=== PATIENT | female | born 1935 | race Hispanic/Latino ===

== ENCOUNTER 2017-05-19 17:12 | Inpatient (IN) | payer MEDICARE ==
[~2017-05-19 17:12] MED LIST: ISOVUE-370 76%-LOCM 1 ML ONE
[2017-05-19 18:09] LABS: #Lymphocytes 0.9 thou/uL (1.20-3.40); #Monocytes 0.9 thou/uL (0.11-0.59); #Neutrophils 14.5 thou/uL (1.40-6.50); %Basophils 0.1 % (0.0-1.0); %Eosinophils 0.1 % (0.0-10.0); %Lymphocytes 5.5 % (21.0-51.0); %Monocytes 5.6 % (0.0-10.0); %Neutrophils 88.7 % (42.0-75.0); Hemoglobin 13.8 g/dL (12.0-16.0); Mean Corpuscular HGB CONC 33.4 g/dL (32.0-36.0); Mean Corpuscular Hemoglobin 30.2 pg (27.0-31.0); Mean Corpuscular Volume 90.4 fl (81.0-99.0); Mean Platelet Volume 8.5 fL (7.4-10.4); Platelet Count 261 thou/uL (130-400); RBC Distribution Width 12.4 % (11.5-14.5); Red Blood Cell (RBC) Count 4.56 mill/uL (4.20-5.40); White Blood Cell (WBC) Count 16.3 thou/uL (4.8-10.8)
[2017-05-19 18:23] LABS: ALT (SGPT) 19 U/L (8-55); AST (SGOT) 125 U/L (5-34); Alkaline Phosphatase 73 U/L (40-150); Anion Gap 20 mmol/L (10-20); BUN (Urea Nitrogen) 47 mg/dL (9.8-20.1); Bilirubin, Total 0.5 mg/dL (0.2-1.2); Calc. Creatinine Clearance 0 mL/min (70-130); Carbon Dioxide 19 mmol/L (23-31); Chloride 103 mmol/L (98-107); Estimated GFR-MDRD 53; Globulin 3.1 g/dL (2.4-3.5); Glucose 122 mg/dL (83-110); Lipase 13 U/L (8-78); Potassium 3.8 mmol/L (3.5-5.1); Protein, Total 7.1 g/dL (6.0-8.3); Sodium 138 mmol/L (136-145)
[2017-05-19 18:32] LABS: Troponin I 0.535 ng/mL (< 0.028)
[2017-05-19 18:36] LABS: CK (CPK) 6916 U/L (29-168)
[2017-05-19 18:42] LABS: Bilirubin Negative (Negative); Blood, Urine Large (Negative); Clarity CLOUDY (Clear); Glucose, Urine (Dipstick) Negative (Negative); Leukocyte Negative (Negative); Nitrite Negative (Negative); Protein, Urine (Dipstick) 100 mg/dL (Neg-Trace); Specific Gravity, Urine 1.024 (1.002-1.036); Urobilinogen 0.2 mg/dL (0.2-1.0)
[2017-05-19 18:45] LABS: Pathc Cast-AUWi Flag 2.16 (0-2.49); Squamous Epithelial 0-3 HPF (0-3); WBC/HPF 0-3 HPF (0-3)
[2017-05-19 18:46] LABS: Yeast-AUWi Flag 45.3 (0-25.0)
[2017-05-19 19:03] LABS: Bacteria/HPF 1+ HPF (None Seen); Yeast-All Forms None Seen HPF (None Seen)
[2017-05-19 19:04] LABS: Hyaline Casts/LPF 0-3 HYALINE CAST LPF (0-3 Hyaline)
[2017-05-19] MEDS ORDERED: cefTRIAXone\\ROCEPHIN 2 GM in Sodium Chloride 0.9% 100 ML IVPB SCH (19:15)
--- NOTE | 2017-05-19 19:48 | CT ---
CT CERVICAL SPINE 05/19/17 PROVIDED CLINICAL HISTORY: Injury. FINDINGS: There is no evidence for fracture or traumatic subluxation. No prevertebral soft tissue swelling is e vident. The visualized lung apices appear clear. IMPRESSION: No evidence for fracture or traumatic subluxation. POS: [facility]
--- NOTE | 2017-05-19 20:38 | CT ---
CT BRAIN 05/19/17 PROVIDED CLINICAL HISTORY: Injury. FINDINGS: The ventricular system is normal in size and morphology. There is no evidence for intracranial hemorr jagdish or mass effect. Microvascular ischemic changes are noted. Extracranial soft tissues and osseous structures demonstrate no acute findings. IMPRESSION: No evidence for intracranial hemorrhage or mass effect. POS: [facility]
--- NOTE | 2017-05-19 20:53 | CT ---
CT CHEST WITH CONTRAST CT ABDOMEN AND PELVIS WITH CONTRAST CT THORACIC SPINE WITH CONTRAST REFORMATTED IMAGING CT LUMBAR SPINE WITH CONTRAST AND REFORMATTED IMAGING 05/19/17 CLINICAL HISTORY: Injury related to fall. Patient has dementia. FINDINGS: There is no lobar consolidation, pleural effusion or pneumothorax. There is minimal volume loss. Ther e is no posttraumatic aneurysmal dilatation of the thoracoabdominal aorta. Diffuse vascular disease i s present. There is moderate distention of the unopacified urinary bladder. There is no ascites or fr ee air. The imaged abdominal viscera is atraumatic in appearance. There is a moderate sized hiatal he rnia. Bowel was incompletely assessed without enteric contrast. There is a small fat containing periu mbilical hernia without associated inflammation. There is multilevel degenerative change of the thora columbar spine. Multilevel mild end plate irregularities are present. This results in a slight degree of central height loss of the superior end plate of L4, age indeterminate. Recommend clinical correl ation to exclude focal pain of the lower lumbar region. No displaced sternal fracture or mediastinal hematoma. IMPRESSION: No definite acute posttraumatic sequela. Age indeterminate slight superior end plate height loss at L4 as above. Correlate clinically. Moderate distention of the unopacified urinary bladder. POS: [facility]
[2017-05-19] MEDS ORDERED: Ondansetron HCl/PF 4 MG/2 ML Vial IVP PRN (22:56)
[2017-05-19] MEDS ORDERED: HYDROcodone/Acetaminophen 5/325 mg Tablet PO PRN (22:56)
[2017-05-19] MEDS ORDERED: Ondansetron ODT 4 MG TAB PO PRN (22:56)
[2017-05-19] MEDS ORDERED: Artificial Tears 18 DROP/0.9 ML EA EYE PRN (22:56)
[2017-05-19] MEDS ORDERED: Chloraseptic Spray 180 ml Bottle PO PRN (22:56)
[2017-05-19] MEDS ORDERED: Milk Of Magnesia 30 ML UDCUP PO PRN (22:56)
[2017-05-19] MEDS ORDERED: Nitroglycerin 0.4 MG TAB (25 Tab Bottle) SL PRN (22:56)
[2017-05-19] MEDS ORDERED: Eucerin (Mineral Oil/Petrolatum,White) 30 gm Jar TOP PRN (22:56)
[2017-05-19] MEDS ORDERED: Mag-Al 1200 mg/1200 mg/30 ML UDCUP PO PRN (22:56)
[2017-05-19] MEDS ORDERED: Diabetic Tussin 200 MG/10 ML UDCUP PO PRN (22:56)
[2017-05-19] MEDS ORDERED: Sodium Chloride 0.65% Nasal 44 ML BOT EA NARE PRN (22:56)
[2017-05-19] MEDS ORDERED: hydrALAZINE 20 MG/ML VIAL SLOW IVP PRN (22:56)
[2017-05-19] MEDS ORDERED: Senokot 8.6 MG TAB PO PRN (22:56)
[2017-05-19] MEDS ORDERED: Loperamide HCl 2 MG CAP PO PRN (22:56)
[2017-05-19] MEDS ORDERED: Loratadine 10 MG TAB PO PRN (22:56)
[2017-05-19] MEDS ORDERED: Zolpidem Tartrate 5 MG TAB PO PRN (22:56)
[2017-05-19 23:09] LABS: Critical Call Chem Troponin I RESULT DECREASING; Troponin I 0.513 ng/mL (< 0.028)
[2017-05-20] MEDS: Sodium Chloride 0.9% 1,000 ML IV SCH ×2 (00:03→20:19)
--- NOTE | 2017-05-20 01:04 | HP ---
PRIMARY CARE PHYSICIAN: Agapito Lizama MD REASON FOR ADMISSION: Rhabdomyolysis, elevated troponin. HISTORY OF PRESENT ILLNESS: An 82-year-old female who lives by herself at home. She has Alzheimer's dementia. She mostly remains at home. She does not drive, but she is able to take care of herself alone. The patient's son who is medical power of cna instructor who visits her frequently, but he was not able to go to check on her for about a week because his son was sick. Patient's son was trying to call her hence she was not responding on phone and that is why the macho parisi's son went and he found her on the floor. It is unclear how long the patient was on the floor and patient was not able to provide any history. Patient was having difficulty getting up by herself on the floor. Patient's son tried to make her stand, but she was hurting all over and that is why fredo diaz's son called 911 and paramedics brought her to the emergency room. Patient's son reports that she is not eating enough. She does report to smoke. She is and s he is declining. She lost some weight as well. In the emergency room, patient is demented, so not able to provide any good history and not reliable history from her, but she is not complaining of any chest pain. In the emergency room, patient had chest, abdomen, and pelvis CT scan which did not show any acute pr ocess. CT cervical spine was negative for any fracture or dislocation. CT brain was also unremarkab le. Cervical collar was discontinued and routine blood tests showed rhabdomyolysis and [id number]-mvy ponin and that is why we decided to keep this patient in the hospital for further evaluation. She do es have elevated leukocytosis and that is why the patient received Rocephin for considering UTI. REVIEW OF SYSTEMS: All review of systems tried to review with the patient, though patient stays most ly no all questions, but reliability of review of systems is uncertain because of dementia. The foll owing complete review of systems was negative, unless otherwise mentioned in the HPI or below: Const itutional: Weight loss or gain, ability to conduct usual activities. Skin: Rash, itching. Eyes: Double vision, pain. ENT/Mouth: Nose bleeding, neck stiffness, pain, tenderness. Cardiovascular: Palpitations, dyspnea on exertion, orthopnea. Respiratory: Shortness of breath, wheezing, cough, he moptysis, fever or night sweats. Gastrointestinal: Poor appetite, abdominal pain, heartburn, nausea , vomiting, constipation, or diarrhea. Genitourinary: Urgency, frequency, dysuria, nocturia. Muscu loskeletal: Pain, swelling. Neurologic/Psychiatric: Anxiety, depression. Allergy/Immunologic: Ski n rash, bleeding tendency. ALLERGIES: No known drug allergies. CURRENT HOME MEDICATIONS: Lisinopril with hydrochlorothiazide one tablet p.o. daily, olanzapine 2.5 mg p.o. daily, Celexa 20 mg p.o. daily. PAST MEDICAL HISTORY: Alzheimer's dementia, hypertension. PAST PSYCHIATRIC HISTORY: Anxiety and depression. PAST SURGICAL HISTORY: Reviewed and negative. FAMILY HISTORY: No strong family history of premature coronary artery disease, stroke or cancer. SOCIAL HISTORY: Patient lives at home. She smokes 4-10 cigarettes on a daily basis. She is able to take care of herself at home, but she has dementia. She does not have any alcohol abuse history. S he is . Her 4 years ago. She lives alone by herself. Her son and daughter are medical power of cna instructor. EMERGENCY ROOM COURSE: Patient has received Rocephin 2 gram, IV fluid. PHYSICAL EXAMINATION: VITAL SIGNS: On arrival, blood pressure 175/86, pulse 109, respiratory rate 20, temperature 98.2, sa turation 98% on room air, weight 49.9 kilograms. GENERAL: Patient is currently alert, awake. Follows simple command, demented. No obvious acute dis tress. HEENT: Head is normocephalic, atraumatic. Eyes: Pupils round, reactive to light. Extraocular musc le are intact. ENT: Oropharynx within normal limits. Dry mucous membranes, no oral lesions, no pha ryngeal erythema, no exudate. NECK: Supple, no JVD, no thyromegaly, no carotid bruit, no jugular venous distention. LUNGS: Clear to auscultation without any rhonchi or rales. CARDIAC: S1, S2 regular. No murmur, no gallop, no rub. ABDOMEN: Soft, bowel sounds present, nontender, nondistended. No organomegaly, no mass, no suprapub ic tenderness. BACK: Unremarkable, no CVA tenderness. No point tenderness. EXTREMITIES: Upper extremity, passive movement of all joints are normal. Lower extremity, passive m ovement of all joints are normal. No edema, good peripheral pulsation. SKIN: No skin rash. HEMATOLOGICAL: No lymphadenopathy. NEUROLOGIC: Patient is moving all 4 limbs. Grossly nonfocal neurological examination. Speech alina l. Planter bilateral flexor. PSYCHIATRIC: Normal affect. SIGNIFICANT LABS: EKG showing sinus tachycardia, left bundle-branch block pattern. CT brain based o n my review, no acute intracranial process. CT cervical spine based on my review, no acute fracture or dislocation. CT chest, abdomen, and pelvis showed a hiatal hernia, degenerative spine disease, bu t no acute process. CBC: WBC 16.3, hemoglobin 13.8, platelets 261, left shift. BMP: Sodium 138, potassium 3.8, chlorid e 103, carbon dioxide 19, anion gap 20, BUN 47, creatinine 1.01, glucose 122, calcium 9.0. LFT: AST 125, ALT 19, alkaline phosphatase 73, albumin 4.0, lipase 13. CK 6916, CK-MB of 45.0, troponin 0.53 5. BNP 778.2, lactic acid 2.0. Urinalysis: Blood large, RBC 4-6, bacteria 1+. ASSESSMENT AND PLAN: 1. Patient found on the floor. Period of fall on the floor is uncertain. Reason for fall is also u ncertain. We need to rule out cardiac etiology. We will monitor on telemetry floor. Patient will n eed PT, OT evaluation and possible placement evaluation. 2. Rhabdomyolysis, likely related with her unknown period of fall on the floor. We will give her ge ntle IV fluid and will repeat total CK tomorrow. We will check TSH as well tomorrow. 3. Leukocytosis. I am suspecting from stress response, but underlying urinary tract infection canno t be entirely excluded. Patient already received Rocephin, which we will continue while in hospital and will repeat CBC tomorrow. 4. Non-ST elevation myocardial infarction. It is unclear whether this patient had any non-STEMI typ e 1 or type 2. At this point, though this patient does not complain of any chest pain, but she does have LBBB and we do not know whether this is new or old. At this point, we will obtain echocardiogra phy. Patient will get Lovenox 1 mg per kg daily. We will continue aspirin 325 mg p.o. daily. We wi ll check lipid profile tomorrow morning. We will give her nitroglycerin p.r.n. basis. We will consu lt Cardiology for their opinion and will monitor on telemetry floor for any kind of arrhythmias. 4. Left bundle-branch block. As mentioned above, it is unclear whether this is new or old. We will try to obtain old record if possible from primary care physician. 5. Elevated BNP. I am suspecting patient will have diastolic heart failure, but at this point, the patient is completely euvolemic as she does not have any orthopnea, PND or shortness of breath and sh e is saturating normal on room air, but we will continue to give her gentle IV fluid with watch for a ny fluid overload status and will obtain echocardiography to confirm ejection fraction and other stru ctural abnormality. 6. Tobacco abuse disorder. Smoking cessation counseling given and will offer nicotine patch if need ed. 7. Alzheimer's dementia. This patient is not on any specific treatment and patient has not tolerate d Alzheimer's dementia medication in the past and that is why I will only provide supportive care. 8. Hypertension. If blood pressure permits, then we will continue nitropatch q.8 hourly and will us e hydralazine and labetalol p.r.n. basis for blood pressure. 9. Hiatal hernia. We will continue Pepcid 20 mg p.o. b.i.d. 10. Degenerative spine disease. We will use on p.r.n. basis for pain medication. 11. Protein calorie malnutrition. The patient will need supplement with Ensure t.i.d. 12. Suspected urinary tract infection as mentioned above, we will continue to treat with Rocephin un til culture result. 13. Deep venous thrombosis prophylaxis. Patient is already on Lovenox therapy. 14. Gastrointestinal prophylaxis. Pepcid 20 mg p.o. b.i.d. 15. Code status. I spoke with the patient and patient's son and medical power of cna instructor and neli rmed her DNR status. Patient's son is medical power of cna instructor. DISPOSITION PLAN: Based on clinical course. This patient will need PT, OT, and SNU evaluation. Exp ecting patient's stay in the hospital more than 2 midnights.
[2017-05-20 02:20] LABS: Troponin I 0.519 ng/mL (< 0.028)
[2017-05-20 05:11] LABS: #Lymphocytes 1.1 thou/uL (1.20-3.40); #Monocytes 0.9 thou/uL (0.11-0.59); #Neutrophils 11.9 thou/uL (1.40-6.50); %Basophils 0.2 % (0.0-1.0); %Lymphocytes 7.6 % (21.0-51.0); %Monocytes 6.5 % (0.0-10.0); %Neutrophils 85.7 % (42.0-75.0); Hemoglobin 12.4 g/dL (12.0-16.0); Mean Corpuscular HGB CONC 33.6 g/dL (32.0-36.0); Mean Corpuscular Hemoglobin 30.2 pg (27.0-31.0); Mean Corpuscular Volume 89.9 fl (81.0-99.0); Mean Platelet Volume 8.6 fL (7.4-10.4); Platelet Count 234 thou/uL (130-400); RBC Distribution Width 12.2 % (11.5-14.5); Red Blood Cell (RBC) Count 4.11 mill/uL (4.20-5.40); White Blood Cell (WBC) Count 13.8 thou/uL (4.8-10.8)
[2017-05-20 05:25] LABS: ALT (SGPT) 19 U/L (8-55); AST (SGOT) 117 U/L (5-34); Albumin 3.7 g/dL (3.4-4.8); Alkaline Phosphatase 60 U/L (40-150); Anion Gap 13 mmol/L (10-20); BUN (Urea Nitrogen) 38 mg/dL (9.8-20.1); Bilirubin, Total 0.4 mg/dL (0.2-1.2); Calc. Creatinine Clearance 42 mL/min (70-130); Calcium 8.9 mg/dL (7.8-10.44); Carbon Dioxide 25 mmol/L (23-31); Cardiac Risk 4.9 (Less than 4.5); Chloride 104 mmol/L (98-107); Cholesterol 235 mg/dl (< 200 Desired); Estimated GFR-MDRD 63; Globulin 2.8 g/dL (2.4-3.5); Glucose 103 mg/dL (83-110); HDL Cholesterol 48 mg/dL (>60 Neg Risk); LDL Cholesterol, Calculated 162 mg/dL; Potassium 3.2 mmol/L (3.5-5.1); Protein, Total 6.5 g/dL (6.0-8.3); Sodium 139 mmol/L (136-145); Triglycerides 127 mg/dL (Less than 150)
[2017-05-20 05:38] LABS: CK (CPK) 4984 U/L (29-168)
[2017-05-20] MEDS: Nitroglycerin 2% Ointment 1 INCH/1 GM Packet TOP SCH ×3 (06:40→23:03)
[2017-05-20] MEDS ORDERED: Famotidine 20 MG TAB PO SCH (09:00)
[2017-05-20] MEDS ORDERED: Aspirin 325 MG TAB PO SCH (09:00)
[2017-05-20] MEDS: Lisinopril/Hydrochlorothiazide 10 mg/12.5 mg Tablet PO SCH (09:55)
[2017-05-20] MEDS: Famotidine 20 MG TAB PO SCH (09:55)
[2017-05-20] MEDS: Enoxaparin Sodium 40 MG/0.4 ML SYRINGE SC SCH (09:55)
[2017-05-20] MEDS: Citalopram 20 MG TAB PO SCH (09:56)
[2017-05-20] MEDS: OLANZapine 2.5 MG TAB PO SCH (09:56)
--- NOTE | 2017-05-20 10:38 | RAD ---
CHEST 1 VIEW: HISTORY: Shortness of breath and leukocytosis. COMPARISON: CT chest and pelvis of prior day. FINDINGS: Heart size is at the upper limits of normal. No focal airspace consolidation, pneumothorax, or effus ion. No displaced rib fracture. IMPRESSION: No acute intrathoracic abnormality. POS: [facility]
[2017-05-20 12:22] VITALS: BMI 19.5
--- NOTE | 2017-05-20 14:50 | PDOC.PN ---
- Subjective Encounter Start Date: 05/20/17 Encounter Start Time: 10:00 Patient is seen today, alert and oriented. She is c/o on and Off chest pain which comes like a slap on her chest. - Objective Resuscitation Status: Resuscitation Status DNR:Do Not Resuscitate MAR Reviewed: Yes Vital Signs & Weight: Vital Signs (12 hours) Temp Pulse Pulse Pulse Resp BP BP 05/20/17 11:48 98.3 F 78 12 05/20/17 09:55 81 05/20/17 09:10 90 89 169/77 H 132/63 05/20/17 08:00 99.5 F 81 16 05/20/17 07:55 99.5 F 81 16 05/20/17 04:00 98.9 F 82 20 BP Pulse Ox 05/20/17 11:48 121/62 96 05/20/17 09:55 05/20/17 09:10 05/20/17 08:00 05/20/17 07:55 151/66 H 95 05/20/17 04:00 176/74 H 96 Weight Admit Weight 114 lb 3 oz Weight 113 lb 12.8 oz I&O: 05/19/17 05/20/17 05/21/17 06:59 06:59 06:59 Intake Total 534 Balance 534 Result Diagrams: 05/20/17 04:36 05/20/17 04:36 Additional Labs: Accuchecks 05/20/17 06:44 POC Glucose 95 Radiology Reviewed by me: Yes EKG Reviewed by me: Yes Phys Exam - Physical Examination HEENT: PERRLA, moist MMs, sclera anicteric Neck: no nodes, no JVD Respiratory: no wheezing, no rales Cardiovascular: RRR, no significant murmur Gastrointestinal: soft, non-tender Musculoskeletal: no edema, pulses present Neurological: non-focal, normal sensation Lymphatic: no nodes Dx/Plan (1) NSTEMI (non-ST elevated myocardial infarction) Code(s): I21.4 - NON-ST ELEVATION (NSTEMI) MYOCARDIAL INFARCTION Status: Acute Comment: Cardiology consulted, Aspirn and BB, will closley monitor, pt had chest pain, will wait for Echo results and follow cardiology recommedations (2) Rhabdomyolysis Code(s): M62.82 - RHABDOMYOLYSIS Status: Acute Comment: Patient Started on IV fluids, No body pans right now. (3) Hypertension Code(s): I10 - ESSENTIAL (PRIMARY) HYPERTENSION Status: Acute Comment: Will continue with HHome MEds. at goal now. (4) Alzheimer disease Code(s): G30.9 - ALZHEIMER'S DISEASE, UNSPECIFIED Status: Acute Comment: Pt has Baseline dementia, pt is Alert and oriented Now. (5) Leucocytosis Code(s): D72.829 - ELEVATED WHITE BLOOD CELL COUNT, UNSPECIFIED Status: Acute Comment: No signs of infection, Will order Chest xray, UA was negative, r/o pneumonia. (6) Moderate dehydration Code(s): E86.0 - DEHYDRATION Status: Acute Comment: Continue with IV fluids , monitor irone output (7) Protein-calorie malnutrition, moderate Code(s): E44.0 - MODERATE PROTEIN-CALORIE MALNUTRITION Status: Acute Comment : Pt is seen today alert and oriented. She does look malnourished, will order nutrition consult, Ensure daily. - Plan cont current plan of care, PT/OT, aids social worker, respiratory therapy, incentive spirometry, out of bed/ambulate, DVT proph w/lovenox * . - Discharge Day Encounter end time: 10:35 Review of Systems - Review of Systems Constitutional: weakness Eyes: negative: Pain, Vision Change, Conjunctivae Inflammation, Eyelid Inflammation, Redness, Other ENT: negative: Ear Pain, Ear Discharge, Nose Pain, Nose Discharge, Nose Congestion, Mouth Pain, Mouth Swelling, Throat Pain, Throat Swelling, Other Respiratory: negative: Cough, Dry, Shortness of Breath, Hemoptysis, SOB with Excertion, Pleuritic Pain, Sputum, Wheezing Cardiovascular: chest pain Gastrointestinal: negative: Nausea, Vomiting, Abdominal Pain, Diarrhea, Constipation, Melena, Hematochezia, Other Genitourinary: negative: Dysuria, Frequency, Incontinence, Hematuria, Retention , Other Musculoskeletal: negative: Neck Pain, Shoulder Pain, Arm Pain, Back Pain, Hand Pain, Leg Pain, Foot Pain, Other Skin: negative: Rash, Lesions, Jian, Bruising, Other - Medications/Allergies Allergies/Adverse Reactions: Allergies Allergy/AdvReac Type Severity Reaction Status Date / Time No Known Drug Allergies Allergy Verified 05/19/17 23:03 Medications: Current Medications Acetaminophen (Tylenol) 650 mg PO Q4H PRN PRN Reason: Headache/Fever or Pain Hydrocodone Bitart/Acetaminophen (Luana 5/325) 1 tab PO Q4H PRN PRN Reason: Moderate Pain (4-6) Al Hydroxide/Mg Hydroxide (Maalox) 30 ml PO Q6H PRN PRN Reason: Heartburn or Indigestion Artificial Tears (Tears Naturale) 0 drop EA EYE PRN PRN PRN Reason: Dry Eyes Aspirin (Aspirin) 325 mg PO DAILY [facility] Last Admin: 05/20/17 09:56 Dose: 325 mg Citalopram Hydrobromide (Celexa) 40 mg PO DAILY [facility] Last Admin: 05/20/17 09:56 Dose: 40 mg Enoxaparin Sodium (Lovenox) 40 mg SC 0900 [facility] Last Admin: 05/20/17 09:55 Dose: 40 mg Famotidine (Pepcid) 20 mg PO DAILY [facility] Last Admin: 05/20/17 09:55 Dose: 20 mg Guaifenesin (Robitussin Sf) 200 mg PO Q4H PRN PRN Reason: Cough Lisinopril/HCTZ (Prinizide 10-12.5) 0.5 tab PO DAILY [facility] Last Admin: 05/20/17 09:55 Dose: 0.5 tab Hydralazine HCl (Apresoline) 10 mg SLOW IVP Q4H PRN PRN Reason: Systolic BP > 180 Sodium Chloride (Normal Saline 0.9%) 1,000 mls @ 50 mls/hr IV .Q20H [facility] Last Admin: 05/20/17 00:03 Dose: 1,000 mls Loperamide HCl (Imodium) 2 mg PO PRN PRN PRN Reason: Diarrhea/Loose Stools Loratadine (Claritin) 10 mg PO DAILYPRN PRN PRN Reason: Sinus Symptoms Magnesium Hydroxide (Milk Of Magnesium) 30 ml PO DAILYPRN PRN PRN Reason: Constipation Mineral Oil/White Petrolatum (Eucerin Cream) 0 gm TOP BIDPRN PRN PRN Reason: Dry Skin Nitroglycerin (Nitrostat) 0.4 mg SL Q5MIN PRN PRN Reason: Chest Pain Nitroglycerin (Nitro-Bid 2% Ointment) 0.5 inch TOP Q8HR [facility] Last Admin: 05/20/17 06:40 Dose: 0.5 inch Olanzapine (Zyprexa) 2.5 mg PO DAILY [facility] Last Admin: 05/20/17 09:56 Dose: 2.5 mg Ondansetron HCl (Zofran Odt) 4 mg PO Q6H PRN PRN Reason: Nausea/Vomiting Ondansetron HCl (Zofran) 4 mg IVP Q6H PRN PRN Reason: Nausea/Vomiting Phenol (Chloraseptic Drummond 180 Ml Bot) 0 ml PO PRN PRN PRN Reason: Sore Throat Senna (Senokot) 2 tab PO HSPRN PRN PRN Reason: Constipation Sodium Chloride (Olds Nasal Drummond 0.65%) 0 ml EA NARE QIDPRN PRN PRN Reason: Nasal Congestion Sodium Chloride (Flush - Normal Saline) 10 ml IVF Q12HR LEANN Sodium Chloride (Flush - Normal Saline) 10 ml IVF PRN PRN PRN Reason: Saline Flush Zolpidem Tartrate (Ambien) 5 mg PO HSPRN PRN PRN Reason: Insomnia
[2017-05-20] MEDS ORDERED: Carvedilol 3.125 MG TAB PO SCH (17:00)
--- NOTE | 2017-05-20 18:03 | CON ---
DATE OF CONSULTATION: 05/20/2017 REASON FOR CONSULTATION: Left bundle-branch block, mildly increased troponin levels. HISTORY OF PRESENT ILLNESS: Ms. Peacock is an 82-year-old woman. She was brought to the hospital yesterday after being found down for an unknown amount of time. The patient has pretty very signific ant dementia and cannot give much history. Her son visits her frequently, but was unable to go check her for about a week because he was sick and finally when her sone went over, she found her on the f kandice. She did not have chest pain or pressure. History is unreliable. REVIEW OF SYSTEMS: Not reliable due to her dementia. ALLERGIES: None known. HOME MEDICATIONS: 1. Lisinopril/HCT. 2. Celexa. PAST MEDICAL HISTORY: Alzheimer's dementia and hypertension. PAST PSYCHIATRIC HISTORY: Anxiety and depression. PAST SURGICAL HISTORY: Negative. FAMILY HISTORY: Negative for heart disease at a young age. SOCIAL HISTORY: As outlined above. Smokes 4-10 cigarettes per day. No alcohol. She is . PHYSICAL EXAMINATION: GENERAL: The patient is oriented x1. She knows who she is, but does not know she is in the hospital . She thinks she in [place], does not know the year. VITAL SIGNS: Blood pressure 120/60, pulse 70 and regular. LUNGS: Clear. CARDIAC: Normal S1, normal S2. ABDOMEN: Soft, nontender. EXTREMITIES: No clubbing or cyanosis. There is no edema. Good popliteal pulses bilaterally. PERTINENT LABORATORY AND X-RAY FINDINGS: Potassium is 3.2, peak troponin of 0.5. CPK 4984, MB 45. Echocardiogram showed ejection fraction 40% to 45%, paradoxical septal motion compatible with left bu ndle-branch block, mild aortic stenosis. ASSESSMENT: 1. Left bundle-branch block. 2. Mild to moderately depressed left ventricular function. 3. Dementia. 4. Borderline troponin, probably has underlying coronary disease. 5. Hypercholesterolemia. PLAN: 1. Continue aspirin. 2. Agree with low dose beta blockers. 3. Agree with KENNEDY inhibitors. 4. I think conservative medical therapy would be the most appropriate choice in this patient with th is degree of dementia would be hesitant to recommend interventional or invasive therapy. If heart fa ilure worsens, could consider biventricular pacing and likely would need to consider angiography firs t. No family available to make further decisions. Recommended conservative therapy.
[2017-05-20] MEDS: Carvedilol 6.25 MG TAB PO SCH (19:30)
[2017-05-20] MEDS ORDERED: cefTRIAXone\\ROCEPHIN 1 GM, Syringe 0.4 ML in Sterile Water 9.6 ML SLOW IVP SCH (20:00)
[2017-05-20] MEDS ORDERED: cefTRIAXone\\ROCEPHIN 1 GM in Sodium Chloride 0.9% 100 ML IVPB SCH (20:00)
[2017-05-20] MEDS: Atorvastatin Calcium 20 MG TAB PO SCH (20:19)
[2017-05-21 04:55] LABS: Anion Gap 9 mmol/L (10-20); BUN (Urea Nitrogen) 30 mg/dL (9.8-20.1); Calc. Creatinine Clearance 42 mL/min (70-130); Calcium 8.1 mg/dL (7.8-10.44); Carbon Dioxide 27 mmol/L (23-31); Chloride 106 mmol/L (98-107); Estimated GFR-MDRD 64; Glucose 85 mg/dL (83-110); Sodium 139 mmol/L (136-145)
[2017-05-21 04:57] LABS: Potassium 2.9 mmol/L (3.5-5.1)
[2017-05-21] MEDS: Potassium Chloride 20 MEQ TAB PO SCH ×2 (05:40→09:02)
[2017-05-21] MEDS: Nitroglycerin 2% Ointment 1 INCH/1 GM Packet TOP SCH ×3 (05:41→21:21)
[2017-05-21] MEDS: Acetaminophen 325 MG TAB PO PRN (09:00)
[2017-05-21] MEDS: Carvedilol 6.25 MG TAB PO SCH ×2 (09:01→17:56)
[2017-05-21] MEDS: OLANZapine 2.5 MG TAB PO SCH (09:01)
[2017-05-21] MEDS: Lisinopril/Hydrochlorothiazide 10 mg/12.5 mg Tablet PO SCH (09:01)
[2017-05-21] MEDS: Famotidine 20 MG TAB PO SCH (09:01)
[2017-05-21] MEDS: Aspirin 81 mg Enteric Coated Tablet PO SCH (09:01)
[2017-05-21] MEDS: Citalopram 20 MG TAB PO SCH (09:01)
[2017-05-21] MEDS: Enoxaparin Sodium 40 MG/0.4 ML SYRINGE SC SCH (09:02)
[2017-05-21] MEDS ORDERED: Potassium Chloride 20 MEQ TAB PO SCH (09:27)
[2017-05-21 12:46] LABS: Potassium 3.4 mmol/L (3.5-5.1)
[2017-05-21] MEDS: Sodium Chloride 0.9% 1,000 ML IV SCH (15:01)
--- NOTE | 2017-05-21 15:26 | PDOC.PN ---
- Subjective Encounter Start Date: 05/21/17 Encounter Start Time: 15:00 Patient is seen today, drosy and sleepy. Unable to get talk to patient, Discussed with [employer] PA today, no plans for intervention. - Objective Resuscitation Status: Resuscitation Status DNR:Do Not Resuscitate MAR Reviewed: Yes Vital Signs & Weight: Vital Signs (12 hours) Temp Pulse Resp BP Pulse Ox 05/21/17 12:00 99.4 F 66 16 119/59 L 93 L 05/21/17 09:00 99.9 F H 74 16 93 L 05/21/17 08:42 99.9 F H 74 16 141/65 H 93 L 05/21/17 04:00 99.5 F 72 18 158/70 H 93 L Weight Admit Weight 114 lb 4.8 oz Weight 112 lb 1 oz I&O: 05/20/17 05/21/17 05/22/17 06:59 06:59 06:59 Intake Total 534 900 Output Total 600 Balance 534 300 Result Diagrams: 05/20/17 04:36 05/21/17 12:26 Phys Exam - Physical Examination Neck: no nodes, no JVD Respiratory: no wheezing, no rales Cardiovascular: RRR, no significant murmur Gastrointestinal: soft, non-tender Musculoskeletal: no edema, pulses present Lymphatic: no nodes Skin: no rash, normal turgor Dx/Plan (1) NSTEMI (non-ST elevated myocardial infarction) Code(s): I21.4 - NON-ST ELEVATION (NSTEMI) MYOCARDIAL INFARCTION Status: Acute Comment: Cardiology consulted, siad no Plan for intervention until pt is stbale and alert, Aspirn and BB, will closley monitor, (2) Rhabdomyolysis Code(s): M62.82 - RHABDOMYOLYSIS Status: Acute Comment: Patient Started on IV fluids, No body pans right now. Improving CPK. (3) Hypertension Code(s): I10 - ESSENTIAL (PRIMARY) HYPERTENSION Status: Acute Comment: Will continue with HHome MEds. at goal now. (4) Alzheimer disease Code(s): G30.9 - ALZHEIMER'S DISEASE, UNSPECIFIED Status: Acute Comment: Pt has Baseline dementia, (5) Leucocytosis Code(s): D72.829 - ELEVATED WHITE BLOOD CELL COUNT, UNSPECIFIED Status: Acute Comment: No signs of infection, Will order Chest xray, UA was negative, r/o pneumonia. (6) Moderate dehydration Code(s): E86.0 - DEHYDRATION Status: Acute Comment: Continue with IV fluids , monitor irone output (7) Protein-calorie malnutrition, moderate Code(s): E44.0 - MODERATE PROTEIN-CALORIE MALNUTRITION Status: Acute Comment : Pt is seen today alert and oriented. She does look malnourished, will order nutrition consult, Ensure daily. - Plan cont current plan of care, PT/OT, social welfare administrator, respiratory therapy, incentive spirometry, out of bed/ambulate, DVT proph w/lovenox * . - Discharge Day Encounter end time: 15:35 Review of Systems - Review of Systems Other: Unable to get any ROS. - Medications/Allergies Allergies/Adverse Reactions: Allergies Allergy/AdvReac Type Severity Reaction Status Date / Time No Known Drug Allergies Allergy Verified 05/19/17 23:03 Medications: Current Medications Acetaminophen (Tylenol) 650 mg PO Q4H PRN PRN Reason: Headache/Fever or Pain Hydrocodone Bitart/Acetaminophen ([place] 5/325) 1 tab PO Q4H PRN PRN Reason: Moderate Pain (4-6) Al Hydroxide/Mg Hydroxide (Maalox) 30 ml PO Q6H PRN PRN Reason: Heartburn or Indigestion Artificial Tears (Tears Naturale) 0 drop EA EYE PRN PRN PRN Reason: Dry Eyes Aspirin (Ecotrin) 81 mg PO DAILY [facility] Last Admin: 05/21/17 09:01 Dose: 81 mg Atorvastatin Calcium (Lipitor) 20 mg PO HS [facility] Last Admin: 05/20/17 20:19 Dose: 20 mg Carvedilol (Coreg) 6.25 mg PO BID-WM [facility] Last Admin: 05/21/17 09:01 Dose: 6.25 mg Citalopram Hydrobromide (Celexa) 40 mg PO DAILY [facility] Last Admin: 05/21/17 09:01 Dose: 40 mg Enoxaparin Sodium (Lovenox) 40 mg SC 0900 [facility] Last Admin: 05/21/17 09:02 Dose: 40 mg Famotidine (Pepcid) 20 mg PO DAILY [facility] Last Admin: 05/21/17 09:01 Dose: 20 mg Guaifenesin (Robitussin Sf) 200 mg PO Q4H PRN PRN Reason: Cough Lisinopril/HCTZ (Prinizide 10-12.5) 0.5 tab PO DAILY [facility] Last Admin: 05/21/17 09:01 Dose: 0.5 tab Hydralazine HCl (Apresoline) 10 mg SLOW IVP Q4H PRN PRN Reason: Systolic BP > 180 Sodium Chloride (Normal Saline 0.9%) 1,000 mls @ 50 mls/hr IV .Q20H [facility] Last Admin: 05/21/17 15:01 Dose: 1,000 mls Loperamide HCl (Imodium) 2 mg PO PRN PRN PRN Reason: Diarrhea/Loose Stools Loratadine (Claritin) 10 mg PO DAILYPRN PRN PRN Reason: Sinus Symptoms Magnesium Hydroxide (Milk Of Magnesium) 30 ml PO DAILYPRN PRN PRN Reason: Constipation Mineral Oil/White Petrolatum (Eucerin Cream) 0 gm TOP BIDPRN PRN PRN Reason: Dry Skin Nitroglycerin (Nitrostat) 0.4 mg SL Q5MIN PRN PRN Reason: Chest Pain Nitroglycerin (Nitro-Bid 2% Ointment) 0.5 inch TOP Q8HR [facility] Last Admin: 05/21/17 14:51 Dose: Not Given Olanzapine (Zyprexa) 2.5 mg PO DAILY [facility] Last Admin: 05/21/17 09:01 Dose: 2.5 mg Ondansetron HCl (Zofran Odt) 4 mg PO Q6H PRN PRN Reason: Nausea/Vomiting Ondansetron HCl (Zofran) 4 mg IVP Q6H PRN PRN Reason: Nausea/Vomiting Phenol (Chloraseptic [place] 180 Ml Bot) 0 ml PO PRN PRN PRN Reason: Sore Throat Senna (Senokot) 2 tab PO HSPRN PRN PRN Reason: Constipation Sodium Chloride ([place] Nasal [place] 0.65%) 0 ml EA NARE QIDPRN PRN PRN Reason: Nasal Congestion Sodium Chloride (Flush - Normal Saline) 10 ml IVF Q12HR [facility] Last Admin: 05/21/17 09:02 Dose: Not Given Sodium Chloride (Flush - Normal Saline) 10 ml IVF PRN PRN PRN Reason: Saline Flush Zolpidem Tartrate (Ambien) 5 mg PO HSPRN PRN PRN Reason: Insomnia
--- NOTE | 2017-05-21 17:25 | PDOC.CTH ---
<Rosa Levin - Last Filed: 05/21/17 17:27> Cardiology Progress Note - Subjective The pt seen and examined. No overnight events. She could not answer or follow any commands at this moment due to drowsy and lethargic. The pt's daughter at bedside and worry about discharge placement - Objective Vital Signs Temp Pulse Resp BP Pulse Ox 05/21/17 16:37 99 F 70 16 144/63 H 95 05/21/17 12:00 99.4 F 66 16 119/59 L 93 L 05/21/17 09:00 99.9 F H 74 16 93 L 05/21/17 08:42 99.9 F H 74 16 141/65 H 93 L Admit Weight 114 lb 4.8 oz Weight 112 lb 1 oz 05/20/17 05/21/17 05/22/17 06:59 06:59 06:59 Intake Total 534 900 Output Total 600 Balance 534 300 - Physical Examination Neck: no JVD present Lungs: other: (diminished at bases) Heart: RRR Abdomen: soft Extremities: other: (no edema) - Telemetry Telemetry Rhythm: SR 60s with LBBB - Labs Result Diagrams: 05/20/17 04:36 05/21/17 12:26 Troponin/CKMB CK-MB (CK-2) 45.0 ng/mL (0-6.6) H* 05/19/17 17:59 Troponin I 0.519 ng/mL (< 0.028) H* 05/20/17 01:17 - Assessment/Plan 1. Increased Trop and new onset of LBBB - Stable; Echo showed EF 40-45%, mild MR , mild , mild-mod AI; on ASA, bblocker, and Lovenox; cont. monitor 2. Rhabdomyolysis - CK has been improving with NS 50ml/h 3. HTN - stable with current medication; cont. monitor 4. Hyperlipidemia - on statin 5. Alzheimer disease 6. Current smoker - smoking cessation education given to the pt's daughter MAR reviewed Review of Systems - Review of Systems Constitutional: reports: see HPI EENTM: reports: see HPI Respiratory: reports: see HPI Cardiac (ROS): reports: see HPI ABD/GI: reports: see HPI : reports: see HPI <Nguyen Silva - Last Filed: 05/22/17 01:21> Cardiology Progress Note - Objective Vital Signs Temp Pulse Resp BP Pulse Ox 05/21/17 21:20 98.7 F 67 16 119/55 L 92 L 05/21/17 16:37 99 F 70 16 144/63 H 95 Admit Weight 114 lb 4.8 oz Weight 112 lb 1 oz 05/20/17 05/21/17 05/22/17 06:59 06:59 06:59 Intake Total 637 192 1754 Output Total 600 Balance 348 588 5657 - Labs Result Diagrams: 05/20/17 04:36 05/21/17 12:26 Troponin/CKMB CK-MB (CK-2) 45.0 ng/mL (0-6.6) H* 05/19/17 17:59 Troponin I 0.519 ng/mL (< 0.028) H* 05/20/17 01:17 - Assessment/Plan The pt. was seen and eval. by me. I agree with the A/P by the FRUIT AND VEGETABLE INSPECTOR.
[2017-05-21] MEDS: Atorvastatin Calcium 20 MG TAB PO SCH (21:20)
[2017-05-22] MEDS: Nitroglycerin 2% Ointment 1 INCH/1 GM Packet TOP SCH ×3 (05:29→22:22)
[2017-05-22] MEDS: Sodium Chloride 0.9% 1,000 ML IV SCH (09:14)
[2017-05-22] MEDS: Citalopram 20 MG TAB PO SCH (09:14)
[2017-05-22] MEDS: Enoxaparin Sodium 40 MG/0.4 ML SYRINGE SC SCH (09:14)
[2017-05-22] MEDS: OLANZapine 2.5 MG TAB PO SCH (09:15)
[2017-05-22] MEDS: Carvedilol 6.25 MG TAB PO SCH ×2 (09:15→17:24)
[2017-05-22] MEDS: Aspirin 81 mg Enteric Coated Tablet PO SCH (09:15)
[2017-05-22] MEDS: Lisinopril/Hydrochlorothiazide 10 mg/12.5 mg Tablet PO SCH (09:15)
[2017-05-22] MEDS: Famotidine 20 MG TAB PO SCH (09:15)
--- NOTE | 2017-05-22 13:30 | PDOC.CTH ---
<Rosa Levin - Last Filed: 05/22/17 13:28> Cardiology Progress Note - Subjective The pt seen and examined. No overnight events. She is still drowsy and hardly keeps her eyes open during the assessment. - Objective Vital Signs Temp Pulse Resp BP BP Pulse Ox 05/22/17 11:34 98.8 F 64 16 128/62 95 05/22/17 09:15 67 05/22/17 08:00 99.6 F 67 16 92 L 05/22/17 07:05 99.6 F 67 16 150/67 H 92 L 05/22/17 04:00 97.4 F L 69 16 149/68 H 90 L Admit Weight 114 lb 4.8 oz Weight 112 lb 05/21/17 05/22/17 05/23/17 06:59 06:59 06:59 Intake Total 900 2265 Output Total 600 Balance 300 2265 - Physical Examination Neck: no JVD present Lungs: other: (diminished at bases) Heart: RRR Abdomen: soft Extremities: other: (No edema) - Telemetry Telemetry Rhythm: SR with LBBB - Labs Result Diagrams: 05/20/17 04:36 05/21/17 12:26 Troponin/CKMB CK-MB (CK-2) 45.0 ng/mL (0-6.6) H* 05/19/17 17:59 Troponin I 0.519 ng/mL (< 0.028) H* 05/20/17 01:17 - Assessment/Plan 1. Increased Trop and new onset of LBBB - Stable; Echo showed EF 40-45%, mild MR , mild , mild-mod AI; on ASA, bblocker, and Lovenox; cont. monitor 2. Rhabdomyolysis - CK has been improving with NS 50 ml/h 3. HTN - stable with current medication; cont. monitor 4. Hyperlipidemia - on statin 5. Alzheimer disease 6. Current smoker - smoking cessation education given MAR reviewed Review of Systems - Review of Systems Constitutional: reports: see HPI EENTM: reports: see HPI Respiratory: reports: see HPI Cardiac (ROS): reports: see HPI ABD/GI: reports: see HPI : reports: see HPI <Nguyen Silva - Last Filed: 05/23/17 09:02> Cardiology Progress Note - Objective Vital Signs Temp Pulse Resp BP BP BP Pulse Ox 05/23/17 08:40 70 05/23/17 08:38 159/73 H 05/23/17 08:00 97.3 F L 70 20 159/73 H 93 L 05/23/17 03:39 99.5 F 64 18 148/70 H 93 L Admit Weight 114 lb 4.8 oz Weight 112 lb 6 oz 05/22/17 05/23/17 05/24/17 06:59 06:59 06:59 Intake Total 2265 2160 Output Total 200 Balance 2265 1960 - Labs Result Diagrams: 05/20/17 04:36 05/21/17 12:26 Troponin/CKMB CK-MB (CK-2) 45.0 ng/mL (0-6.6) H* 05/19/17 17:59 Troponin I 0.519 ng/mL (< 0.028) H* 05/20/17 01:17 - Assessment/Plan Pt. seen and eval. by me. I agree with the A/P by the OBEDIENCE TRAINER. Chest is clear. RRR.
--- NOTE | 2017-05-22 14:02 | PDOC.PN ---
- Subjective Encounter Start Date: 05/22/17 Encounter Start Time: 11:30 Patient is seen today remains drowsy and lethargic, C/o Left lower quadrant pain. intermittantly 08/02 . - Objective Resuscitation Status: Resuscitation Status DNR:Do Not Resuscitate MAR Reviewed: Yes Vital Signs & Weight: Vital Signs (12 hours) Temp Pulse Resp BP BP Pulse Ox 05/22/17 11:34 98.8 F 64 16 128/62 95 05/22/17 09:15 67 05/22/17 08:00 99.6 F 67 16 92 L 05/22/17 07:05 99.6 F 67 16 150/67 H 92 L 05/22/17 04:00 97.4 F L 69 16 149/68 H 90 L Weight Admit Weight 114 lb 4.8 oz Weight 112 lb I&O: 05/21/17 05/22/17 05/23/17 06:59 06:59 06:59 Intake Total 900 2265 Output Total 600 Balance 300 2265 Result Diagrams: 05/20/17 04:36 05/21/17 12:26 Radiology Reviewed by me: Yes Phys Exam - Physical Examination HEENT: PERRLA, moist MMs Neck: no nodes, no JVD Respiratory: no wheezing, no rales Cardiovascular: RRR, no significant murmur Gastrointestinal: soft, non-tender Musculoskeletal: no edema, pulses present Neurological: non-focal, normal sensation Dx/Plan (1) NSTEMI (non-ST elevated myocardial infarction) Code(s): I21.4 - NON-ST ELEVATION (NSTEMI) MYOCARDIAL INFARCTION Status: Acute Comment: Cardiology consulted, siad no Plan for intervention until pt is stbale and alert, Aspirn and BB, will closley monitor, Stbale. Conservative manageemnt. (2) Rhabdomyolysis Code(s): M62.82 - RHABDOMYOLYSIS Status: Acute Comment: Patient Started on IV fluids, No body pans right now. Improving CPK. COntinue with IV fluids. (3) Hypertension Code(s): I10 - ESSENTIAL (PRIMARY) HYPERTENSION Status: Acute Comment: Will continue with HHome MEds. at goal now. (4) Alzheimer disease Code(s): G30.9 - ALZHEIMER'S DISEASE, UNSPECIFIED Status: Acute Comment: Pt has Baseline dementia, (5) Leucocytosis Code(s): D72.829 - ELEVATED WHITE BLOOD CELL COUNT, UNSPECIFIED Status: Acute Comment: No signs of infection, Chest xray was normal. UA was negative, r/o pneumonia. (6) Moderate dehydration Code(s): E86.0 - DEHYDRATION Status: Acute Comment: Continue with IV fluids , monitor irone output (7) Protein-calorie malnutrition, moderate Code(s): E44.0 - MODERATE PROTEIN-CALORIE MALNUTRITION Status: Acute Comment : Pt is seen today alert and oriented. She does look malnourished, will order nutrition consult, Ensure daily. - Plan cont current plan of care, PT/OT, social media marketing specialist, respiratory therapy, incentive spirometry, DVT proph w/lovenox Disposition, Will need Evalaution for SNF/ NH placement, pt high risk for falls and readmissions. - Discharge Day Encounter end time: 12:10 Review of Systems - Review of Systems Constitutional: weakness, malaise. negative: fever, chills, sweats, other Eyes: negative: Pain, Vision Change, Conjunctivae Inflammation, Eyelid Inflammation, Redness, Other Respiratory: negative: Cough, Dry, Shortness of Breath, Hemoptysis, SOB with Excertion, Pleuritic Pain, Sputum, Wheezing Cardiovascular: negative: chest pain, palpitations, orthopnea, paroxysmal nocturnal dyspnea, edema, light headedness, other Gastrointestinal: negative: Nausea, Vomiting, Abdominal Pain, Diarrhea, Constipation, Melena, Hematochezia, Other Genitourinary: negative: Dysuria, Frequency, Incontinence, Hematuria, Retention , Other Musculoskeletal: negative: Neck Pain, Shoulder Pain, Arm Pain, Back Pain, Hand Pain, Leg Pain, Foot Pain, Other Skin: negative: Rash, Lesions, Jian, Bruising, Other - Medications/Allergies Allergies/Adverse Reactions: Allergies Allergy/AdvReac Type Severity Reaction Status Date / Time No Known Drug Allergies Allergy Verified 05/19/17 23:03 Medications: Current Medications Acetaminophen (Tylenol) 650 mg PO Q4H PRN PRN Reason: Headache/Fever or Pain Hydrocodone Bitart/Acetaminophen ([place] 5/325) 1 tab PO Q4H PRN PRN Reason: Moderate Pain (4-6) Al Hydroxide/Mg Hydroxide (Maalox) 30 ml PO Q6H PRN PRN Reason: Heartburn or Indigestion Artificial Tears (Tears Naturale) 0 drop EA EYE PRN PRN PRN Reason: Dry Eyes Aspirin (Ecotrin) 81 mg PO DAILY [facility] Last Admin: 05/22/17 09:15 Dose: 81 mg Atorvastatin Calcium (Lipitor) 20 mg PO HS [facility] Last Admin: 05/21/17 21:20 Dose: 20 mg Carvedilol (Coreg) 6.25 mg PO BID[facility] Last Admin: 05/22/17 09:15 Dose: 6.25 mg Citalopram Hydrobromide (Celexa) 40 mg PO DAILY [facility] Last Admin: 05/22/17 09:14 Dose: 40 mg Enoxaparin Sodium (Lovenox) 40 mg SC 0900 [facility] Last Admin: 05/22/17 09:14 Dose: 40 mg Famotidine (Pepcid) 20 mg PO DAILY [facility] Last Admin: 05/22/17 09:15 Dose: 20 mg Guaifenesin (Robitussin Sf) 200 mg PO Q4H PRN PRN Reason: Cough Lisinopril/HCTZ (Prinizide 10-12.5) 0.5 tab PO DAILY [facility] Last Admin: 05/22/17 09:15 Dose: 0.5 tab Hydralazine HCl (Apresoline) 10 mg SLOW IVP Q4H PRN PRN Reason: Systolic BP > 180 Sodium Chloride (Normal Saline 0.9%) 1,000 mls @ 50 mls/hr IV .Q20H [facility] Last Admin: 05/22/17 09:14 Dose: 1,000 mls Loperamide HCl (Imodium) 2 mg PO PRN PRN PRN Reason: Diarrhea/Loose Stools Loratadine (Claritin) 10 mg PO DAILYPRN PRN PRN Reason: Sinus Symptoms Magnesium Hydroxide (Milk Of Magnesium) 30 ml PO DAILYPRN PRN PRN Reason: Constipation Mineral Oil/White Petrolatum (Eucerin Cream) 0 gm TOP BIDPRN PRN PRN Reason: Dry Skin Nitroglycerin (Nitrostat) 0.4 mg SL Q5MIN PRN PRN Reason: Chest Pain Nitroglycerin (Nitro-Bid 2% Ointment) 0.5 inch TOP Q8HR [facility] Last Admin: 05/22/17 05:29 Dose: Not Given Olanzapine (Zyprexa) 2.5 mg PO DAILY [facility] Last Admin: 05/22/17 09:15 Dose: 2.5 mg Ondansetron HCl (Zofran Odt) 4 mg PO Q6H PRN PRN Reason: Nausea/Vomiting Ondansetron HCl (Zofran) 4 mg IVP Q6H PRN PRN Reason: Nausea/Vomiting Phenol (Chloraseptic [place] 180 Ml Bot) 0 ml PO PRN PRN PRN Reason: Sore Throat Senna (Senokot) 2 tab PO HSPRN PRN PRN Reason: Constipation Sodium Chloride ([place] Nasal [place] 0.65%) 0 ml EA NARE QIDPRN PRN PRN Reason: Nasal Congestion Sodium Chloride (Flush - Normal Saline) 10 ml IVF Q12HR [facility] Last Admin: 05/22/17 09:15 Dose: Not Given Sodium Chloride (Flush - Normal Saline) 10 ml IVF PRN PRN PRN Reason: Saline Flush Zolpidem Tartrate (Ambien) 5 mg PO HSPRN PRN PRN Reason: Insomnia
[2017-05-22] MEDS: Atorvastatin Calcium 20 MG TAB PO SCH (20:28)
[2017-05-23] MEDS: Nitroglycerin 2% Ointment 1 INCH/1 GM Packet TOP SCH ×3 (06:05→22:14)
[2017-05-23] MEDS: Sodium Chloride 0.9% 1,000 ML IV SCH (06:12)
[2017-05-23] MEDS: OLANZapine 2.5 MG TAB PO SCH (08:37)
[2017-05-23] MEDS: Famotidine 20 MG TAB PO SCH (08:37)
[2017-05-23] MEDS: Carvedilol 6.25 MG TAB PO SCH ×2 (08:38→16:40)
[2017-05-23] MEDS: Citalopram 20 MG TAB PO SCH (08:38)
[2017-05-23] MEDS: Aspirin 81 mg Enteric Coated Tablet PO SCH (08:38)
[2017-05-23] MEDS: Enoxaparin Sodium 40 MG/0.4 ML SYRINGE SC SCH (08:39)
[2017-05-23] MEDS: Lisinopril/Hydrochlorothiazide 10 mg/12.5 mg Tablet PO SCH (08:40)
[2017-05-23 09:59] LABS: #Eosinphils 0.1 thou/uL (0.0-0.7); #Lymphocytes 1.9 thou/uL (1.20-3.40); #Monocytes 0.6 thou/uL (0.11-0.59); #Neutrophils 3.6 thou/uL (1.40-6.50); %Basophils 0.7 % (0.0-1.0); %Eosinophils 1.1 % (0.0-10.0); %Lymphocytes 31.3 % (21.0-51.0); %Neutrophils 57.9 % (42.0-75.0); Hemoglobin 11.8 g/dL (12.0-16.0); Mean Corpuscular Hemoglobin 30.6 pg (27.0-31.0); Mean Corpuscular Volume 89.9 fl (81.0-99.0); Mean Platelet Volume 8.6 fL (7.4-10.4); Platelet Count 187 thou/uL (130-400); RBC Distribution Width 12.2 % (11.5-14.5); Red Blood Cell (RBC) Count 3.86 mill/uL (4.20-5.40); White Blood Cell (WBC) Count 6.1 thou/uL (4.8-10.8)
[2017-05-23 10:21] LABS: ALT (SGPT) 14 U/L (8-55); AST (SGOT) 51 U/L (5-34); Albumin 3.3 g/dL (3.4-4.8); Alkaline Phosphatase 58 U/L (40-150); Anion Gap 10 mmol/L (10-20); BUN (Urea Nitrogen) 17 mg/dL (9.8-20.1); Bilirubin, Total 0.6 mg/dL (0.2-1.2); CK (CPK) 841 U/L (29-168); Calc. Creatinine Clearance 43 mL/min (70-130); Calcium 7.9 mg/dL (7.8-10.44); Carbon Dioxide 24 mmol/L (23-31); Chloride 105 mmol/L (98-107); Estimated GFR-MDRD 67; Globulin 2.4 g/dL (2.4-3.5); Glucose 94 mg/dL (83-110); Magnesium 1.8 mg/dL (1.6-2.6); Potassium 3.4 mmol/L (3.5-5.1); Protein, Total 5.7 g/dL (6.0-8.3); Sodium 136 mmol/L (136-145)
[2017-05-23 10:25] LABS: CKMB 4.2 ng/mL (0-6.6)
[2017-05-23 10:30] LABS: Troponin I 0.442 ng/mL (< 0.028)
--- NOTE | 2017-05-23 12:21 | PDOC.PN ---
- Subjective Encounter Start Date: 05/23/17 Encounter Start Time: 09:35 Pt seen and examined, chart reviewed in its entirety, this is my first visit with this patient Seen on round,s has to urinate. Ramon diagnosis of dementia, currently orteinted to person, place, not year. No f/C, no N/V/D/C, no CP or sOB. denies any further complaints 10 point ROS performed and neg for all systems except as above - Objective Resuscitation Status: Resuscitation Status DNR:Do Not Resuscitate MAR Reviewed: Yes Vital Signs & Weight: Vital Signs (12 hours) Temp Pulse Resp BP BP BP Pulse Ox 05/23/17 08:40 70 05/23/17 08:38 159/73 H 05/23/17 08:00 97.3 F L 70 20 159/73 H 93 L 05/23/17 03:39 99.5 F 64 18 148/70 H 93 L Weight Admit Weight 114 lb 4.8 oz Weight 112 lb 6 oz I&O: 05/22/17 05/23/17 05/24/17 06:59 06:59 06:59 Intake Total 2265 2160 240 Output Total 200 Balance 2265 1960 240 Result Diagrams: 05/23/17 09:50 05/23/17 09:50 Radiology Reviewed by me: Yes EKG Reviewed by me: Yes Phys Exam - Physical Examination Constitutional: NAD HEENT: PERRLA, moist MMs, sclera anicteric, oral pharynx no lesions Neck: no nodes, no JVD, supple, full ROM Respiratory: no wheezing, no rales, no rhonchi, clear to auscultation bilateral Cardiovascular: RRR, no significant murmur, no rub Gastrointestinal: soft, non-tender, no distention, positive bowel sounds Musculoskeletal: no edema, pulses present Neurological: non-focal, normal sensation, moves all 4 limbs Lymphatic: no nodes Psychiatric: normal affect Skin: no rash, normal turgor, cap refill <2 seconds Dx/Plan (1) Fall on same level Code(s): W18.30XA - FALL ON SAME LEVEL, UNSPECIFIED, INITIAL ENCOUNTER Status : Acute Qualifiers: Encounter type: initial encounter Qualified Code(s): W18.30XA - Fall on same level, unspecified, initial encounter (2) Alzheimer disease Code(s): G30.9 - ALZHEIMER'S DISEASE, UNSPECIFIED Status: Acute Qualifiers: Alzheimer's disease onset: unspecified onset Comment: Pt has Baseline dementia, (3) Hypertension Code(s): I10 - ESSENTIAL (PRIMARY) HYPERTENSION Status: Chronic Qualifiers: Hypertension type: essential hypertension Qualified Code(s): I10 - Essential (primary) hypertension Comment: Will continue with HHome MEds. at goal now. (4) Moderate dehydration Code(s): E86.0 - DEHYDRATION Status: Acute Comment: Continue with IV fluids , improved, encourage po intake (5) Protein-calorie malnutrition, moderate Code(s): E44.0 - MODERATE PROTEIN-CALORIE MALNUTRITION Status: Acute Comment : Pt is seen today alert and oriented. She does look malnourished, will order nutrition consult, Ensure daily. (6) Rhabdomyolysis Code(s): M62.82 - RHABDOMYOLYSIS Status: Acute Qualifiers: Rhabdomyolysis type: non-traumatic Qualified Code(s): M62.82 - Rhabdomyolysis Comment: Patient Started on IV fluids, Improving CPK. COntinue with IV fluids. (7) Elevated troponin I level Code(s): R74.8 - ABNORMAL LEVELS OF OTHER SERUM ENZYMES Status: Acute Comment: follow up cardiology. Trop stable - Plan cont current plan of care, PT/OT, out of bed/ambulate, DVT proph w/lovenox * .
[2017-05-23] MEDS ORDERED: Amiodarone 200 MG TAB PO SCH (21:00)
[2017-05-23] MEDS: Atorvastatin Calcium 20 MG TAB PO SCH (22:14)
[2017-05-24] MEDS: Nitroglycerin 2% Ointment 1 INCH/1 GM Packet TOP SCH ×3 (05:03→22:23)
[2017-05-24 05:49] LABS: #Eosinphils 0.1 thou/uL (0.0-0.7); #Lymphocytes 2.2 thou/uL (1.20-3.40); #Monocytes 0.8 thou/uL (0.11-0.59); %Basophils 0.4 % (0.0-1.0); %Lymphocytes 31.1 % (21.0-51.0); %Monocytes 10.9 % (0.0-10.0); %Neutrophils 56.6 % (42.0-75.0); Hemoglobin 12.5 g/dL (12.0-16.0); Mean Corpuscular HGB CONC 33.6 g/dL (32.0-36.0); Mean Corpuscular Hemoglobin 30.1 pg (27.0-31.0); Mean Corpuscular Volume 89.6 fl (81.0-99.0); Mean Platelet Volume 8.9 fL (7.4-10.4); Platelet Count 209 thou/uL (130-400); RBC Distribution Width 12.2 % (11.5-14.5); Red Blood Cell (RBC) Count 4.16 mill/uL (4.20-5.40)
[2017-05-24 06:00] LABS: Anion Gap 11 mmol/L (10-20); BUN (Urea Nitrogen) 14 mg/dL (9.8-20.1); CK (CPK) 530 U/L (29-168); Calc. Creatinine Clearance 47 mL/min (70-130); Calcium 8.4 mg/dL (7.8-10.44); Carbon Dioxide 25 mmol/L (23-31); Chloride 102 mmol/L (98-107); Estimated GFR-MDRD 73; Glucose 105 mg/dL (83-110); Magnesium 1.7 mg/dL (1.6-2.6); Potassium 3.4 mmol/L (3.5-5.1); Sodium 135 mmol/L (136-145)
[2017-05-24] MEDS: Carvedilol 6.25 MG TAB PO SCH ×2 (08:41→20:35)
[2017-05-24] MEDS: Aspirin 81 mg Enteric Coated Tablet PO SCH (08:41)
[2017-05-24] MEDS: Citalopram 20 MG TAB PO SCH (08:42)
[2017-05-24] MEDS: Famotidine 20 MG TAB PO SCH (08:42)
[2017-05-24] MEDS: Lisinopril/Hydrochlorothiazide 10 mg/12.5 mg Tablet PO SCH (08:47)
[2017-05-24] MEDS: Enoxaparin Sodium 40 MG/0.4 ML SYRINGE SC SCH (08:51)
[2017-05-24] MEDS: Acetaminophen 325 MG TAB PO PRN (11:09)
--- NOTE | 2017-05-24 13:45 | PDOC.PN ---
- Subjective Encounter Start Date: 05/24/17 Encounter Start Time: 09:15 Pt awake and alert, but pleasantly demented. today someone in the room introduced herself as her daughter, taking notes very carefully. Discussed with wound care later, she told them she was a family friend Pt without event overnight, no F/c, no N/V/D/C, no CP or sOB. family friend updated as she presented herself as a daughter. ROS not obtainable due to dementia - Objective Resuscitation Status: Resuscitation Status DNR:Do Not Resuscitate MAR Reviewed: Yes Vital Signs & Weight: Vital Signs (12 hours) Temp Pulse Resp BP BP Pulse Ox 05/24/17 11:10 99.6 F 05/24/17 08:47 153/74 H 05/24/17 08:41 153/74 H 05/24/17 08:00 99.4 F 71 20 05/24/17 07:54 99.4 F 71 20 164/67 H 94 L 05/24/17 04:00 98.3 F 73 20 176/72 H 95 Weight Admit Weight 114 lb 4.8 oz Weight 112 lb 6 oz I&O: 05/23/17 05/24/17 05/25/17 06:59 06:59 06:59 Intake Total 2160 1270 120 Output Total 200 250 Balance 1960 1020 120 Result Diagrams: 05/24/17 04:35 05/24/17 04:35 Phys Exam - Physical Examination Constitutional: NAD HEENT: PERRLA, moist MMs, sclera anicteric, oral pharynx no lesions Neck: no nodes, no JVD, supple, full ROM Respiratory: no wheezing, no rales, no rhonchi, clear to auscultation bilateral Cardiovascular: RRR, no significant murmur, no rub Gastrointestinal: soft, non-tender, no distention, positive bowel sounds Musculoskeletal: no edema, pulses present Neurological: non-focal, normal sensation, moves all 4 limbs Lymphatic: no nodes Psychiatric: normal affect Skin: no rash, normal turgor, cap refill <2 seconds Dx/Plan (1) Fall on same level Code(s): W18.30XA - FALL ON SAME LEVEL, UNSPECIFIED, INITIAL ENCOUNTER Status : Acute Qualifiers: Encounter type: initial encounter Qualified Code(s): W18.30XA - Fall on same level, unspecified, initial encounter Comment: stable, PT/OT, needs to go to rehab. Case management working. Medically ready (2) Alzheimer disease Code(s): G30.9 - ALZHEIMER'S DISEASE, UNSPECIFIED Status: Acute Qualifiers: Alzheimer's disease onset: unspecified onset Comment: Pt has Baseline dementia, (3) Hypertension Code(s): I10 - ESSENTIAL (PRIMARY) HYPERTENSION Status: Chronic Qualifiers: Hypertension type: essential hypertension Qualified Code(s): I10 - Essential (primary) hypertension Comment: Will continue with HHome MEds. at goal now. (4) Moderate dehydration Code(s): E86.0 - DEHYDRATION Status: Acute Comment: Continue with IV fluids , improved, encourage po intake (5) Protein-calorie malnutrition, moderate Code(s): E44.0 - MODERATE PROTEIN-CALORIE MALNUTRITION Status: Acute Comment : Pt is seen today alert and oriented. She does look malnourished, will order nutrition consult, Ensure daily. (6) Rhabdomyolysis Code(s): M62.82 - RHABDOMYOLYSIS Status: Resolved Qualifiers: Rhabdomyolysis type: non-traumatic Qualified Code(s): M62.82 - Rhabdomyolysis Comment: Patient Started on IV fluids, Improving CPK. Down to 570 today. COntinue with IV fluids. (7) Elevated troponin I level Code(s): R74.8 - ABNORMAL LEVELS OF OTHER SERUM ENZYMES Status: Resolved Comment: trending down. 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 stage one to left posterior shoulder. Mepilex and offloading to both - Plan cont current plan of care, PT/OT, out of bed/ambulate, DVT proph w/lovenox * .
[2017-05-24] MEDS: Atorvastatin Calcium 20 MG TAB PO SCH (20:35)
[2017-05-24] MEDS: OLANZapine 2.5 MG TAB PO SCH (20:36)
[2017-05-25 00:37] VITALS: BP 143/66; TEMP 98.1
--- NOTE | 2017-05-26 15:17 | DS ---
DATE OF ADMISSION: 05/19/2017 DATE OF : 05/25/2017 TIME OF : 0025 CAUSE OF : 1. Cardiac arrest. 2. Respiratory arrest. DIAGNOSES AT TIME OF : 1. Fall on same level. 2. Alzheimer dementia. 3. Essential hypertension. 4. Moderate dehydration. 5. Protein calorie malnutrition, moderate. 6. Rhabdomyolysis, mild and resolved. 7. Demand ischemia. 8. Stage I left posterior shoulder pressure ulcer. 9. Chronic sacral pressure ulcer, unknown initial stage present on admission. CONSULTATIONS: Cardiology, Dr. Chris Parker. PROCEDURES: 1. Echocardiogram 05/19/2017 that showed EF 40-45%, paradoxical motion consistent with left bundle b ranch block, mild MR, sclerotic aortic valve with mild stenosis, mild to moderate AI, mild to moderat e TR, mildly elevated pulmonary artery pressures around 35 mm. HISTORY OF PRESENT ILLNESS: Ms. Peacock was an 82-year-old female who lived by herself at home wi th Alzheimer dementia. She had family that she was visited frequently including her son, but due to his own family being sick was not able to visit his mom for about a week. He was trying to call her and she was not responding, so he came to evaluate her. He found her on the floor for an unknown maddie gth of time. EMS was activated. In the ER, the patient had a negative radiographic images for injury. Lab showed about rhabdomyolysi s and elevated troponin so the patient was admitted. HOSPITAL COURSE: The patient seen and examined by Dr. Pan and admitted to the hospital. She was started on IV fluids, PT, OT consult and Cardiology consult with echocardiogram. Overnight 05/19/2017 to 05/20/2017, the patient remained relatively stable. She was seen by Dr. Gerson black the following 3 days. She responded well to hydration and her CK started to improve. On [address] she [address] by Dr[address] Chris Parker with Cardiology and felt this was a borderline troponin, likely d emand ischemia from her dehydration and event. He recommended conservative medical therapy and no re commended interventional invasive therapy unless she worsened and followed her from a distance. She continued to improve from 05/21/2017 to 05/22/2017. She has continued working with physical therapy and occupational therapy and jail placement was begun for rehabilitation. I took over on 05/23/2017, the patient was fairly oriented. She has no other complaints and was stab le. By 05/24/2017 she seemed to be improving. A female who said that she was family was at the [facility], but after talking with [facility] later in the day, they had met the same woman and was told federico t she was a family friend. Her labs remained stable. She was clinically improving and getting stron daniela. 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 At 00 25 on 05/25/2017, the patient was found unresponsive without pulse, or breathing. She had been seen about one hour prior in her normal state of health. She was pronounced at 0025 and was tra [place] [facility] [place] and family was attempted to be contacted, but they did not answer initially an d ultimately was contacted around 0300. They released the body to the home. DISCHARGE CONDITION: . TIME OF : 0025.
--- NOTE | 2017-05-28 14:20 | EKG ---
Test Reason : Blood Pressure : / mmHG Vent. Rate : 106 BPM Atrial Rate : 106 BPM P-R Int : 140 ms QRS Dur : 136 ms QT Int : 422 ms P-R-T Axes : 067 -23 105 degrees QTc Int : 560 ms Sinus tachycardia Left bundle branch block Abnormal ECG Confirmed by ANNMARIE MCFADDEN MD ([id number]), editor in chief newspaper ASHLEY BOYD ([id number]) on 05/28/2017 2:20:11 PM Referred By: Confirmed By:ANNMARIE MCFADDEN MD
== END 2017-05-25 00:25 | disposition expired | DRG 557 ==
LOC: ERS 17:12 → 2NO 22:04 → T4-B 05-23 23:30
PROVIDERS: ADMIT Emergency Medicine; ATTEND Emergency Medicine
DX: M62.82 Rhabdomyolysis (principal); I21.4 Non-ST elevation (NSTEMI) myocardial infarction; I46.9 Cardiac arrest, cause unspecified; L89.121 Pressure ulcer of left upper back, stage 1; L89.159 Pressure ulcer of sacral region, unspecified stage; E44.0 Moderate protein-calorie malnutrition; E86.0 Dehydration; G30.9 Alzheimer's disease, unspecified; F02.80 Dementia in other diseases classified elsewhere, unspecified severity, without behavioral disturbance, psychotic disturbance, mood disturbance, and anxiety; Z68.1 Body mass index [BMI] 19.9 or less, adult; N39.0 Urinary tract infection, site not specified; I24.8 Other forms of acute ischemic heart disease; I44.7 Left bundle-branch block, unspecified; F17.210 Nicotine dependence, cigarettes, uncomplicated; I10 Essential (primary) hypertension; F41.9 Anxiety disorder, unspecified; F32.9 Major depressive disorder, single episode, unspecified; K44.9 Diaphragmatic hernia without obstruction or gangrene; Z66 Do not resuscitate; E78.00 Pure hypercholesterolemia, unspecified; W18.30XA Fall on same level, unspecified, initial encounter; I08.0 Rheumatic disorders of both mitral and aortic valves; I08.3 Combined rheumatic disorders of mitral, aortic and tricuspid valves
CPT/HCPCS: 36415; 36416; 70450; 71045; 71260; 72125; 74177; 80048; 80053; 80061; 81003; 81015; 82550; 82553; 83605; 83690; 83735; 83880; 84443; 84484; 85025; 87040; 87086; 93005; 93306; 96361; 96365; A4216; G8978-GP-CL; G8979-GP-CJ; G8987-GO-CL; G8988-GO-CK; J0696; J1650; J7050